=== PATIENT | male | born 1950 | race Caucasian/White ===

== ENCOUNTER → 2017-03-09 | Outpatient (CLI) | payer BC ==
[~2017-03-09] MED LIST: CHOL2000 PO; PANT40TA PO; [UNRECOGNIZED DRUG - OTHER] PO
[2017-03-09 11:12] LABS: BASO % 0.5 %; BASO ABS # 0.02 K/uL (0-0.2); COMPLETE YES; HEMATOCRIT 40.9 % (42-52); LYMPH % 20.5 %; LYMPH ABS # 0.81 K/uL (1.2-3.4); MEAN CELL VOLUME 87.4 fL (80-100); MEAN PLATELET VOLUME 12.9 fL (7.4-10.4); MONO % 7.6 %; NEUT % 67.4 %; PLATELET COUNT 149 K/uL (130-400); RED BLOOD COUNT 4.68 M/uL (4.7-6.1); WHITE BLOOD COUNT 3.96 K/uL (4.8-10.8)
[2017-03-09 11:27] LABS: BLOOD UREA NITROGEN 9 mg/dl (7-18); BUN/CREATININE RATIO 10.1 (10-20); CARBON DIOXIDE 29 mmol/L (21-32); CHLORIDE 105 mmol/L (98-107); CHOLESTEROL 149 mg/dl (0-200); CREATININE 0.85 mg/dl (0.60-1.40); GLUCOSE 84 mg/dl (70-99); POTASSIUM 3.8 mmol/L (3.5-5.1); SODIUM 141 mmol/L (136-145); TRIGLYCERIDES 75 mg/dl (0-150); VERY LOW DENSITY LIPOPROT CALC 15 mg/dl
[2017-03-09 11:32] LABS: FERRITIN 25.4 ng/ml (8.0-388.0); HDL CHOLESTEROL 50 mg/dl; LDL CHOLESTEROL CALCULATED 84 mg/dl; PROSTATE SPECIFIC ANTIGEN 0.285 ng/ml (0.000-4.000)
[2017-03-09 11:33] LABS: CALCIUM 9.2 mg/dl (8.5-10.1)
== END | disposition home or self-care (01) ==
LOC: C.LABBC 07:13
PROVIDERS: ATTEND Internal Medicine
DX: E78.5 Hyperlipidemia, unspecified (principal); D64.9 Anemia, unspecified; R35.0 Frequency of micturition

== ENCOUNTER → 2017-05-29 | Outpatient (CLI) | payer BC ==
[2017-05-29 14:01] LABS: BASO % 0.6 %; BASO ABS # 0.02 K/uL (0-0.2); COMPLETE YES; EOS % 6.9 %; HEMATOCRIT 43.6 % (42-52); LYMPH ABS # 1.05 K/uL (1.2-3.4); MEAN CELL VOLUME 87.7 fL (80-100); MEAN CORPUSCULAR HEMOGLOBIN 28.6 pg (25-34); MEAN CORPUSCULAR HGB CONC 32.6 g/dl (32-36); MEAN PLATELET VOLUME 12.5 fL (7.4-10.4); MONO % 7.7 %; NEUT % 55.8 %; PLATELET COUNT 151 K/uL (130-400); RED BLOOD COUNT 4.97 M/uL (4.7-6.1); WHITE BLOOD COUNT 3.62 K/uL (4.8-10.8)
== END | disposition home or self-care (01) ==
LOC: C.LABBC 07:38
PROVIDERS: ATTEND Internal Medicine
DX: D64.9 Anemia, unspecified (principal)

== ENCOUNTER → 2017-08-18 | Outpatient (CLI) | payer BC ==
[2017-08-18 13:18] LABS: BASO % 0.4 %; BASO ABS # 0.02 K/uL (0-0.2); COMPLETE YES; EOS % 3.2 %; HEMATOCRIT 41.2 % (42-52); LYMPH % 26.4 %; LYMPH ABS # 1.23 K/uL (1.2-3.4); MEAN CELL VOLUME 86.4 fL (80-100); MEAN CORPUSCULAR HEMOGLOBIN 28.7 pg (25-34); MEAN CORPUSCULAR HGB CONC 33.3 g/dl (32-36); MEAN PLATELET VOLUME 12.4 fL (7.4-10.4); MONO % 9.7 %; NEUT % 60.3 %; PLATELET COUNT 186 K/uL (130-400); RED BLOOD COUNT 4.77 M/uL (4.7-6.1); WHITE BLOOD COUNT 4.66 K/uL (4.8-10.8)
== END | disposition home or self-care (01) ==
LOC: C.LABBC 11:54
PROVIDERS: ATTEND Internal Medicine
DX: D64.9 Anemia, unspecified (principal)

== ENCOUNTER 2017-09-12 09:35 | Emergency (ER) | payer BC ==
[~2017-09-12] VITALS: Ht 177.8 cm; Wt 68.3 kg
[2017-09-12 09:37] VITALS: Ht 177.8 cm; Wt 68.3 kg
[2017-09-12] MEDS ORDERED: OXYCODONE/ACETAMINOPHEN 5-325 TAB PO ONE (10:00)
--- NOTE | 2017-09-12 10:20 | EMERGENCY ROOM VISIT NOTE ---
History Report prepared by Mansoor: Luis Angel Blakely Under the Supervision of: Dr. Negrito Marshall M.D. First contact with patient: 09:49 Chief Complaint: SHOULDER PAIN Stated Complaint: FELL ON L SHOULDER,SHOULDER PAIN IN L SHOULDER History of Present Illness The patient is a 66 year old male who presents to the Emergency Room with complaints of persistent left shoulder pain one hour [employer]. The patient reports that he was running this morning when he came in contact with black ice and he flew into the air and landed on the ground. He notes his left shoulder did not strike the ground, though he notes it felt like "my left arm pulling out from my shoulder prior to the fall." He notes that he could move his arm 1[address], though he can no longer move it upwards. He currently rates his pain a 9 /10 in severity. He notes a bulge on his left shoulder. He denies any abdominal pain and neck pain. He notes that he has had a right rotator cuff problem in the past, though denies any past injuries to his left arm. He notes the pain in his left arm is worse than the rotator cuff injury. He thinks his left shoulder is dislocated. Source of History: patient Onset: one hour [employer] Position: shoulder (left) Symptom Intensity: 9/10 Timing: other (persistent) Associated Symptoms: No neck pain, No abdominal pain Note: He notes a bulge on his left shoulder. Review of Systems All systems have been listed, reviewed, and are negative other than those previously mentioned. Please see Additional Medical History Sheet. Past Medical & Surgical Medical Problems: (1) Cheekbone fracture (2) GERD (gastroesophageal reflux disease) Family History Heart disease Hypertension Lung disease Social History Smoking Status: Never Smoker Alcohol Use: none Drug Use: none Marital Status: Housing Status: lives with family Occupation Status: employed Current/Historical Medications Scheduled Cholecalciferol (Vitamin D3), 1 CAP PO DAILY [Calogen], 3 TABLETS PO DAILY Scheduled PRN Oxycodone/Acetaminophen 5MG/325MG (Percocet 5MG/325MG), 1-2 TABLETS PO Q4H PRN for Pain Allergies Coded Allergies: No Known Allergies (Verified , 09/12/17) Physical Exam Vital Signs Date Time Temp Pulse Resp B/P (MAP) Pulse Ox O2 Delivery O2 Flow Rate FiO2 09/12/17 12:13 36.3 59 18 131/84 100 09/12/17 09:37 67 18 162/91 100 Room Air Physical Exam GENERAL: Patient awake, alert, oriented x 3. Patient follows commands. Patient does not appear toxic. Patient is adequately hydrated and well- nourished. Patient appears to be in moderate distress. SKIN: No erythema, pallor, cyanosis or rash HEENT: Normal head, pupils equal, reactive to light and accommodation. Ears normal. Oral cavity and posterior pharynx appear normal. Neck: Without adenopathy, no neck vein distention. Neck is supple and nontender. LUNGS: Clear to auscultation. No wheezes, no rales, no rhonchi. HEART: No murmurs. No gallops. No rubs ABDOMEN: Soft, nontender. EXTREMITIES: Pt has small and slight elevation at left AC joint, but nontender at that point. Extreme limitation of adduction, flexion, and extension. Sensory and circulatory function intact distally. NEUROLOGIC: Cranial nerves II-XII within normal limits. No gross motor sensory function deficits. Medical Decision & Procedures ER Provider Diagnostic Interpretation: Radiology results as stated below per my review and radiologist interpretation: L SHOULDER MIN 2 VIEWS ROUTINE CLINICAL HISTORY: Left shoulder pain status post trauma COMPARISON: None DISCUSSION: There is a humeral head/neck fracture with 4.5 mm of displacement of the greater tuberosity. No dislocation is visualized. IMPRESSION: 1. Proximal humeral fracture with 4.5 mm of displacement of the greater tuberosity 2. No evidence of dislocation Electronically signed by: Joe Holcomb M.D. 09/12/2017 11:07 AM Dictated Date/Time: 09/12/2017 11:05 AM Medications Administered Medications (Trade) Dose Ordered Sig/Adrianna Route Start Time Stop Time Status Last Admin Dose Admin Oxycodone/ Acetaminophen (Percocet 5-325mg Tab) 1 tab NOW ONCE PO 09/12/17 10:00 09/12/17 10:02 DC 09/12/17 10:47 1 TAB ED Course 0953: Past medical records reviewed. The patient was evaluated in room C3. A complete history and physical examination was performed. 1000: Ordered Oxycodone/Acetaminophen 1 tab PO 1132: I reassessed the patient at this time. He is feeling better and resting comfortably. I discussed the results and treatment plan with the patient. I answered all pertaining questions that he had. He expressed understanding and verbalized agreement. The patient will be discharged home. Medical Decision Nurses notes reviewed. Medical history sheet reviewed. Differential diagnosis includes but is not limited to: AC separation, shoulder dislocation, rotator cuff injury, bursitis, and arthritis. 66-year-old male who fell while running but felt pain in his shoulder before he hit the ground. Patient does not think he had significant trauma to the shoulder. He now complains of significant pain with any movement of the shoulder. X-ray reveals a fracture of the proximal humerus. The patient was given Percocet here. Icepack was provided. The patient was placed in a shoulder immobilizer. The patient will require orthopedic follow-up. I discussed care with the patient and his . 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 [place] Drug Monitoring Program Search Results: no issues identified Medication Reconcilliation Current Medication List: was personally reviewed by me Blood Pressure Screening Patient's blood pressure: Elevated blood pressure Blood pressure disposition: Elevated BP felt to be situational Impression Primary Impression: Fracture of proximal end of left humerus Scribe Attestation The scribe's documentation has been prepared under my direction and personally reviewed by me in its entirety. I confirm that the note above accurately reflects all work, treatment, procedures, and medical decision making performed by me. Departure Information Dispostion Home / Self-Care Prescriptions Oxycodone/Acetaminophen 5MG/325MG (PERCOCET 5MG/325MG) Tab 1-2 TABLETS PO Q4H Y for Pain, #20 TAB Prov: Negrito Marshall M.D. 09/12/17 Referrals ProMartinez M.D. (PCP) Forms HOME CARE DOCUMENTATION FORM, IMPORTANT VISIT INFORMATION, Work Instructions Patient Instructions My [facility] [place] [facility] Additional Instructions Apply ice intermittently over the next 24 hours. 650 mg of Tylenol every 4 hours as needed for pain. 1-2 Percocet every 4 hours as needed for more severe pain. Do not take Percocet and Tylenol together. Follow-up with orthopedics this coming week. Off work for the next 7 days. Work Instructions Return To Work: 1 week
--- NOTE | 2017-09-12 11:08 | DIAGNOSTIC IMAGING REPORT ---
L SHOULDER MIN 2 VIEWS ROUTINE CLINICAL HISTORY: Left shoulder pain status post trauma COMPARISON: None DISCUSSION: There is a humeral head/neck fracture with 4.5 mm of displacement of the greater tuberosity. No dislocation is visualized. IMPRESSION: 1. Proximal humeral fracture with 4.5 mm of displacement of the greater tuberosity 2. No evidence of dislocation Electronically signed by: Joe Holcomb M.D. 09/12/2017 11:07 AM Dictated Date/Time: 09/12/2017 11:05 AM
[2017-09-12] MEDS ORDERED: OXYC-57 PO (12:04)
[2017-09-12 12:13] VITALS: BP 131/84; PULSE 59; TEMP 36.3; O2SAT 100
== END 2017-09-12 12:13 | disposition home or self-care (01) ==
LOC: C.EDB 09:36 → C.EDC 12:13
DX: S42.252A Displaced fracture of greater tuberosity of left humerus, initial encounter for closed fracture (principal); W00.0XXA Fall on same level due to ice and snow, initial encounter; Y93.89 Activity, other specified; K21.9 Gastro-esophageal reflux disease without esophagitis; Z82.49 Family history of ischemic heart disease and other diseases of the circulatory system; Z79.899 Other long term (current) drug therapy

== ENCOUNTER → 2018-01-04 | Outpatient (CLI) | payer BC ==
[~2018-01-04] MED LIST changes: +OXYC-57 PO; -PANT40TA PO
[2018-01-04 14:36] LABS: BASO % 0.2 %; BASO ABS # 0.01 K/uL (0-0.2); EOS % 1.2 %; EOS ABS # 0.07 K/uL (0-0.5); HEMATOCRIT 41.8 % (42-52); HEMOGLOBIN 14.1 g/dL (14.0-18.0); LYMPH ABS # 0.47 K/uL (1.2-3.4); MEAN CORPUSCULAR HEMOGLOBIN 28.7 pg (25-34); MEAN CORPUSCULAR HGB CONC 33.7 g/dl (32-36); MEAN PLATELET VOLUME 12.3 fL (7.4-10.4); MONO % 7.9 %; MONO ABS # 0.46 K/uL (0.11-0.59); NEUT % 82.7 %; NEUT ABS # 4.84 K/uL (1.4-6.5); PLATELET COUNT 151 K/uL (130-400); RED CELL DISTRIBUTION WIDTH CV 13.1 % (11.5-14.5); RED CELL DISTRIBUTION WIDTH SD 40.6 fL (36.4-46.3); WHITE BLOOD COUNT 5.85 K/uL (4.8-10.8)
[2018-01-04 15:01] LABS: ALBUMIN 3.6 gm/dl (3.4-5.0); ALT/SGPT 23 U/L (12-78); AST/SGOT 23 U/L (15-37); BLOOD UREA NITROGEN 11 mg/dl (7-18); CARBON DIOXIDE 29 mmol/L (21-32); CREATININE 0.86 mg/dl (0.60-1.40); GLUCOSE 103 mg/dl (70-99); POTASSIUM 3.9 mmol/L (3.5-5.1); SODIUM 137 mmol/L (136-145)
[2018-01-04 15:03] LABS: ALKALINE PHOSPHATASE 100 U/L (45-117); TOTAL PROTEIN 7.4 gm/dl (6.4-8.2)
== END | disposition home or self-care (01) ==
LOC: C.LAB1850 13:38
PROVIDERS: ATTEND Physician Assistant
DX: R19.7 Diarrhea, unspecified (principal)

== ENCOUNTER → 2018-04-11 | Outpatient (CLI) | payer BC ==
[~2018-04-11] MED LIST changes: -OXYC-57 PO
[2018-04-11 09:56] LABS: HEMATOCRIT 41.8 % (42-52); HEMOGLOBIN 13.8 g/dL (14.0-18.0); MEAN CELL VOLUME 85.8 fL (80-100); MEAN CORPUSCULAR HEMOGLOBIN 28.3 pg (25-34); RED CELL DISTRIBUTION WIDTH SD 40.6 fL (36.4-46.3); WHITE BLOOD COUNT 4.19 K/uL (4.8-10.8)
[2018-04-11 10:00] LABS: MEAN PLATELET VOLUME 12.9 fL (7.4-10.4); PLATELET COUNT 142 K/uL (130-400)
[2018-04-11 10:04] LABS: ALT/SGPT 30 U/L (12-78); BLOOD UREA NITROGEN 8 mg/dl (7-18); CARBON DIOXIDE 27 mmol/L (21-32); CHOLESTEROL 159 mg/dl (0-200); GLUCOSE 87 mg/dl (70-99); LDL CHOLESTEROL CALCULATED 87 mg/dl; SODIUM 138 mmol/L (136-145)
== END | disposition home or self-care (01) ==
LOC: C.LAB1850 08:09
PROVIDERS: ATTEND Internal Medicine
DX: E78.5 Hyperlipidemia, unspecified (principal); D50.9 Iron deficiency anemia, unspecified; Z12.5 Encounter for screening for malignant neoplasm of prostate